=== PATIENT | male | born 1955 | race Caucasian/White ===

== ENCOUNTER 2021-05-26 06:14 | Inpatient (IN) ==
--- NOTE | 2021-05-19 14:03 | Anesthesiology Consultation ---
Date of Service May 19, 2021 Assessment & Plan (1) Encounter for pre-operative examination: Chart Review Chart Review: Acceptable Risk for Surgery (pending preop Covid testing results ) and Patient NOT seen in Pre Admission Testing Per nursing assessment 03/27/21, patient denies any recent travel. No known Covid positive contacts or Covid related symptoms. No known Covid infection in the past 90 days. Pt is vaccinated for Covid. Pt will need preop Covid testing 2-4 days prior to surgery= will await results Pt seen by cardio 03/25/21= presents for annual cardiology follow up. He has be ing seeing urology for bladder stones and has intermittent hematuria. He is to undergo a cystoscopic procedure to remove the stones. Patient is doing well with physically active lifestyle and no cardiopulmonary symptoms to suggest myocardial ischemia or systolic dysfunction 14 years status post CABG with NEWBY graft. Continue aspirin indefinitely. He has tried doses higher than 81 mg daily but has excessive bruising, reasonable to continue this dose long-term. Recommended that hestop aspirin for 5 days prior to cystoscopic procedure(no longer as he has old bypass grafts) or for 3 days if he has any hematuria. Follow up in one year History Surgery Operation Date: 04/21/21 10:30 Proposed Procedures p Transurethral Resection Prostate, - Jose Cintron DO s Cystolithopaxy - Jose Cintron DO Operation Date: 05/26/21 07:00 Proposed Procedures p Transurethral Resection of the Prostate and Cystolitholapaxy - Jose Cintron DO Height/Weight Height: 5 ft 9 in Weight: 84.368 kg Allergies Allergy/AdvReac Type Severity Reaction Status Date / Time No Known Allergies Allergy Verified 03/27/21 16:04 Medications Home Medications Medication Instructions Recorded Confirmed Last Taken atorvastatin 80 mg tablet 80 mg PO QAM 06/09/18 03/27/21 06/22/18 lisinopril 2.5 mg tablet 2.5 mg PO QAM 06/09/18 03/27/21 06/22/18 aspirin 81 mg tablet 81 mg PO QAM tab 03/25/21 03/27/21 Unknown nitroglycerin 0.4 mg sublingual 0.4 mg SUBLINGUAL DIRECTED PRN 03/25/21 03/27/21 Unknown tablet (Nitrostat) #25 tab finasteride 5 mg tablet 5 mg PO QAM 03/27/21 03/27/21 Unknown tamsulosin 0.4 mg capsule (Flomax) 0.4 mg PO QPM 03/27/21 03/27/21 Unknown Past Medical History Medical History BPH (benign prostatic hyperplasia) CAD (coronary artery disease) S/P inferolateral infarct with subsequent multivessel CABG including NEWBY 2006. "Has been intolerant to beta-blockers, BRIAN inhibitor remains a reasonable alternative" per cardio 02/2021 office note (follows with Dr. Sharpe) Dyslipidemia HTN (hypertension) Lesion of bladder Myocardial Infarction 2007 - [place] - HEART CATH AND THEN CABG X4 Osteoarthritis Past Family History Family History Other No family history of adverse response to anesthesia Past Surgical History Surgical History History of cardiac cath 2006 - [place] - WAS LIFEFLIGHTED TO [place], HAD HEART CATH AND THEN CABG X4 History of coronary artery bypass graft X 4 2006 History of surgery TURBT 06/20/18 [facility] Hx of transurethral resection of prostate Social History Smoking Status: Current every day smoker tobacco type: cigars Smoking cigarettes per day: 1 A DAY Do You Dip or Chew Tobacco: No Hx Alcohol Use: No Hx Substance Use: No substance use type: does not use Testing Laboratory Results 05/12/21= WBC: 7.5 H/H: 15.8/46.7 PLATELETS: 184 SODIUM: 139 POTASSIUM: 4.1 CHLORIDE: 110 CO2: 26 BUN: 13 CREATININE: 0.8 GLUCOSE: 102 UA: Hazy appearance, trace nitrite, 10-15 urine WBC, few bacteria, few mucus URINE CULTURE: <10,000 mixed bacterial kenneth Electrocardiogram Date: 04/04/21 Findings: + NSR @ (66bpm) Normal EKG per confirming provider Chest X-Ray Date: 04/02/21 Hyperventilatory changes in the lungs without evidence of focal abnormality Stress Test Date: 04/25/20 Type: exercise (ECHO) Negative stress EKG and ECHO for ischemia at 94% MPHR. 7 METS achieved. Pt had no exercise induced chest pain. Normal BP response to exercise No significant ectopy at rest and with exercise Baseline ECHO with mildly reduced LV systolic function (EF 40%), mild global HK most marked in distal septum, appropriate augmentation of all subramanian with exercise. Mild LVH
[~2021-05-26 06:14] MED LIST: LR 15ML/HR IV SCH; ceFAZolin 2000MG 2,000 MG/15 ML SYR IV SCH
[2021-05-26] MEDS ORDERED: NITROGLYCERIN SL 0.4 MG/TAB TAB SL PRN (07:05)
[2021-05-26] MEDS ORDERED: BELLADONNA/OPIUM SUPP 60 MG SUPP PR ONE (07:05)
[2021-05-26] MEDS ORDERED: ONDANSETRON INJ 2 MG/ML 2 ML VIAL IV PRN ×2 (07:05→07:20)
[2021-05-26] MEDS ORDERED: oxyCODONE/ACETAMINOPHEN 5mg/325mg TAB PO PRN (07:05)
[2021-05-26] MEDS ORDERED: MoRPHine SULFATE 2 MG/ML CARP IV PRN (07:05)
--- NOTE | 2021-05-26 07:05 | History & Physical Report ---
Date of Service May 26, 2021 Assessment & Plan (1) BPH loc w urin obs/LUTS: (2) Gross hematuria: (3) Bladder stones: Plan: Risks and benefits discussed at length for procedure. These include bleeding, infection, injury to surrounding tissues or organs, and risks associated with anesthesia. Patient states understanding and agrees to proceed. Will sign consent and proceed. Plan for cystoscopy with transurethral resection of prostate and lithalopaxy. Obs overnight with catheter for approx 10 days. History of Present Illness Primary Care Provider: Marc Dillard DO Patient here for procedure. No changes in medical issues. No major changes in urinary issues. Continued issues and concerns. No change in pain or discomfort. No severe fevers or chills. No chest pain or shortness of breath. Risks and benefits discussed at length for procedure. These include bleeding, infection, injury to surrounding tissues or organs, and risks associated with anesthesia. Patient and/or family states understanding and agrees to proceed. Consent and supporting information completed. Allergies Allergy/AdvReac Type Severity Reaction Status Date / Time No Known Allergies Allergy Verified 05/26/21 06:45 Home Medications Medication Instructions Recorded Confirmed Type atorvastatin 80 mg tablet 80 mg PO QAM 06/09/18 05/26/21 History lisinopril 2.5 mg tablet 2.5 mg PO QAM 06/09/18 05/26/21 History aspirin 81 mg tablet 81 mg PO QAM tab 03/25/21 05/26/21 History nitroglycerin 0.4 mg sublingual 0.4 mg SUBLINGUAL DIRECTED PRN 03/25/21 05/26/21 Rx tablet (Nitrostat) #25 tab finasteride 5 mg tablet 5 mg PO QAM 03/27/21 05/26/21 History tamsulosin 0.4 mg capsule (Flomax) 0.4 mg PO QPM 03/27/21 05/26/21 History Past Med/Surg History Medical History BPH (benign prostatic hyperplasia) CAD (coronary artery disease) S/P inferolateral infarct with subsequent multivessel CABG including NEWBY 2006. "Has been intolerant to beta-blockers, BRIAN inhibitor remains a reasonable alternative" per cardio 02/2021 office note (follows with Dr. Sharpe) Dyslipidemia HTN (hypertension) Lesion of bladder Myocardial Infarction 2007 - [place] - HEART CATH AND THEN CABG X4 Osteoarthritis Surgical History History of cardiac cath 2006 [place] - WAS LIFEFLIGHTED TO [place], HAD HEART CATH AND THEN CABG X4 History of coronary artery bypass graft X 4 2007 History of surgery TURBT 06/20/18 [facility] Hx of transurethral resection of prostate Family History Other No family history of adverse response to anesthesia Social History Smoking Status: Current every day smoker Cigarettes Per Day: 1 A DAY; Second Hand Exposure: No; Do You Dip or Chew Tobacco: No; Tobacco Cessation Education Requested by Patient: No Hx Alcohol Use: No Hx Substance Use: No Preferred Language: Armenian Communication Ability: Effective Visual Impairment: No Limitations Clicking Machine Operator Required: No Beliefs That Will Affect Care: None Current Living Situation: Spouse Feels Safe at Home: Yes Safety Concerns: Feels Safe At This Time Assistive Devices: Glasses Review of Systems All systems reviewed & are unremarkable except as noted in HPI & below Physical Exam Physical Exam: General: Alert/Arousable. No Acute illness. . HEENT: Inspection normal. Normal inspection of face. Normal inspection of neck. Psychologic: Normal affect/No change in mentation. Respiratory: No use of accessory muscles. No respiratory changes or exacerbation or changes with tachypnea or dyspnea. Cardiovascular: No tachycardia Skin: [place] and Dry. No new rashes or visible lesions. Abdomen: Normal inspection. No guarding. PG Care Time/CCT Total # of Minutes Spent Total Time Spent with Patient: Total time spent is greater than 50% in coordination of care (as documented) at patient's floor/unit and/or counseling patient: Coding Level of Care Code None Diagnoses BPH loc w urin obs/LUTS N40.1 Gross hematuria R31.0 Bladder stones N21.0
[2021-05-26] MEDS ORDERED: fentaNYL citrate 100 MCG/2 ML VIAL IV PRN (07:20)
[2021-05-26] MEDS ORDERED: ePHEDrine sulfate 50 MG/ML AMP IV PRN (07:20)
[2021-05-26] MEDS ORDERED: ATROPINE SULFATE 0.1 MG/ML 10ML SYR IV PRN (07:20)
[2021-05-26 07:31] LABS: Basophils # (auto) 0.04 K/uL (0-0.2); Basophils % (auto) 0.4 %; Eosinophils # (auto) 0.18 K/uL (0-0.5); Eosinophils % (auto) 1.9 %; Hematocrit (blood only) 45.7 % (42-52); Hemoglobin 15.4 g/dL (14.0-18.0); Immature Granulocytes # (auto) 0.01 K/uL (0.00-0.02); Immature Granulocytes % (auto) 0.1 %; Lymphocytes # (auto) 1.78 K/uL (1.2-3.4); Lymphocytes % (auto) 19.3 %; Mean Corpuscular Hemoglobin 31.6 pg (25-34); Mean Corpuscular Hgb Conc 33.7 g/dL (32-36); Mean Corpuscular Volume 93.6 fL (80-100); Mean Platelet Volume 10.9 fL (7.4-10.4); Monocytes # (auto) 0.61 K/uL (0.11-0.59); Monocytes % (auto) 6.6 %; Neutrophils # (auto) 6.62 K/uL (1.4-6.5); Neutrophils % (auto) 71.7 %; Platelet Count 186 K/uL (130-400); RDW Coefficient of Variation 13.4 % (11.5-14.5); RDW Standard Deviation 46.1 fL (36.4-46.3); Red Blood Count 4.88 M/uL (4.7-6.1); White Blood Count 9.24 K/uL (4.8-10.8)
[2021-05-26] MEDS ORDERED: PROPOFOL IV EMULSION 10 MG/ML 20 ML VIAL IV ONE (07:33)
[2021-05-26] MEDS ORDERED: ONDANSETRON INJ 2 MG/ML 2 ML VIAL ONE (07:33)
[2021-05-26] MEDS ORDERED: LIDOCAINE 2% 2 ML VIAL/AMP(20MG/ML) INFIL ONE (07:33)
[2021-05-26] MEDS ORDERED: fentaNYL citrate 100 MCG/2 ML VIAL ONE ×3 (07:34→08:53)
[2021-05-26] MEDS ORDERED: MIDAZOLAM HCL 1 MG/ML 2ML VIAL ONE (07:34)
[2021-05-26 08:00] LABS: Albumin Level 3.4 gm/dl (3.4-5.0); Creatinine Clr Calc Pharmacy 87.5 ml/min; Est GFR (African American) 106.6 ml/min
[2021-05-26 08:03] LABS: Albumin Globulin Ratio 0.9 (0.9-2); Bilirubin,Total 0.6 mg/dl (0.2-1); Globulin 3.6 gm/dl (2.5-4.0)
[2021-05-26] MEDS ORDERED: DEXAMETHASONE SOD INJ 4 MG/ML VIAL ONE ×2 (08:14→08:18)
[2021-05-26] MEDS ORDERED: KETOROLAC 30 MG/ML VIAL ONE (08:18)
[2021-05-26] MEDS ORDERED: PHENYLEPHRINE 100MCG/ML 5ML SYR ONE (08:27)
[2021-05-26] MEDS ORDERED: ePHEDrine sulfate 50 MG/ML SYR ONE (08:27)
[2021-05-26] MEDS ORDERED: ESMOLOL HCL INJ 10 MG/ML 10ML VIAL IV ONE (09:05)
--- NOTE | 2021-05-26 10:26 | Operative Report ---
PG Post Operative Report Pre & Post Diagnosis Operation Date: 05/26/21 08:00 Pre-Op Diagnosis: Benign Prostate Hyperplasia, Bladder Stones Post-Op Diagnosis: Benign Prostate Hyperplasia, Bladder Stones I identified the patient and participated in the time-out.: Yes Procedure Operation Date: 05/26/21 08:00 Actual Procedures p Transurethral Resection of the Prostate, Cystolitholapaxy(Not Applicable) - Jose Cintron DO Surgeon Jose Cintron, II, DO Epitaxial Reactor Operator None Estimated Blood Loss 10 Findings Consistent with Post-Op Diagnosis Extremely Large Prostate with obstruction. Large bladder stones. Four stones greater than 1 cm. Largest was approx 3.2 cm in size. Specimens Prostate adenoma. Bladder stone Drains 22Fr [address] way Catheter Anesthesia Type General Complications none Disposition Disposition: Recovery Room Indications Patient with obstruction due to prostate enlargement. Risks and benefits discussed at length. Description of Procedure Patient was consented and brought back to the operating room. Patient was placed under anesthesia in the supine position and moved to the dorsal lithotomy position. Patient was prepped and draped in the regular sterile fashion. A time out was completed. A 30degree Cystoscope was placed into the bladder and the entire bladder was examined. The UO's were identified as well as the bladder neck, trigone, dome, and the other important landmarks. The prostatic urethra and large lobes/adenoma was assessed and the veru and bladder neck identified and area/size was assessed. The large bladder stones were assess. The 1000 micron laser fiber was selected and the stones were destroyed and evacuated. A considerable amount of inflammation with a stone attached to the right lateral lobe was discovered. The stones were completely cleared and removed. The resection scope was placed and the fine bipolar loop was selected. Starting at the 5 and 7 o'clock positions, a channel was created from bladder neck to the veru. The massive lateral lobes were then resected from the 1 and 11 o'clock position to the channel. Both lateral lobes had a large amount of tissue with a good deal of adenoma projecting into the bladder. The anterior prostate was resected to finalize the channel. The Specimen was removed and sent for analysis. The resection bed and any bleeding areas were fulgurated/cauterized and the entire area inspected. All bleeding was controlled. The bladder was inspected a final time. The bladder was emptied and irrigated. All specimen and debris was removed. The scope was removed with the bladder partially full. A catheter was placed and balloon elevated. This was easily irrigated. The patient was cleaned, aroused from anesthesia, and transferred to the pacu in stable condition having tolerated the procedure well with no complications. I was present and participated in all aspects of the procedure. The patient will be monitored in the PACU until transferred. Plan to maintain catheter for 10-14 days. Plans for observation overnight with CBI. I attest to the content of the Intraoperative Record and any orders documented therein. Any exceptions are noted below.
--- NOTE | 2021-05-26 11:02 | Anesthesiology Progress Note ---
Date of Service May 26, 2021 Anesthesia Post Procedure Vital Signs Vital Signs: Temp Pulse Pulse Resp BP Pulse Ox 05/26/21 10:55 63 15 105/67 96 05/26/21 10:45 64 15 113/70 98 05/26/21 10:35 70 14 94/67 L 94 05/26/21 10:29 36.1 C L 71 17 105/72 92 05/26/21 06:51 36.8 C 70 20 126/85 95 Transfer of Care Handoff Completed per policy Notes Mental Status: alert / awake / arousable Patient Amnestic to Procedure: Yes Nausea / Vomiting: adequately controlled Pain: adequately controlled Airway Patency, RR, SpO2: stable & adequate BP & HR: stable & adequate Hydration State: stable & adequate Anesthetic Complications: no major complications apparent
[2021-05-26] MEDS: DOCUSATE SODIUM 100 MG CAP PO SCH ×2 (13:04→21:06)
[2021-05-26] MEDS: ATORVASTATIN 40 MG TAB PO SCH (13:04)
[2021-05-26] MEDS: SODIUM CHLORIDE 0.9% 1000ML 1,000 ML IV SCH (13:06)
[2021-05-26] MEDS ORDERED: ceFAZolin 2000MG 2,000 MG/15 ML SYR IV SCH (16:00)
[2021-05-26] MEDS ORDERED: PIPERACILL/TAZOBAC CONSULT ACTIVE PRN (17:52)
[2021-05-26] MEDS: ACETAMINOPHEN 500 MG TAB PO PRN (18:20)
[2021-05-26] MEDS ORDERED: PIPERACILLIN/TAZOBACTAM 3.375 GM in DEXTROSE 5% 100 ML IV ONE (18:30)
[2021-05-26 18:43] LABS: Eosinophils # (auto) 0.02 K/uL (0-0.5); Eosinophils % (auto) 0.2 %; Hematocrit (blood only) 39.3 % (42-52); Hemoglobin 13.1 g/dL (14.0-18.0); Immature Granulocytes # (auto) 0.02 K/uL (0.00-0.02); Immature Granulocytes % (auto) 0.2 %; Lymphocytes # (auto) 0.25 K/uL (1.2-3.4); Lymphocytes % (auto) 2.1 %; Mean Corpuscular Hemoglobin 31.5 pg (25-34); Mean Corpuscular Volume 94.5 fL (80-100); Mean Platelet Volume 11.1 fL (7.4-10.4); Monocytes # (auto) 0.19 K/uL (0.11-0.59); Monocytes % (auto) 1.6 %; Neutrophils # (auto) 11.54 K/uL (1.4-6.5); Neutrophils % (auto) 95.9 %; Platelet Count 147 K/uL (130-400); RDW Coefficient of Variation 13.6 % (11.5-14.5); Red Blood Count 4.16 M/uL (4.7-6.1); White Blood Count 12.02 K/uL (4.8-10.8)
[2021-05-26 18:45] LABS: Mean Corpuscular Hgb Conc 33.3 g/dL (32-36)
--- NOTE | 2021-05-26 19:07 | XRay Report ---
SINGLE VIEW CHEST CLINICAL HISTORY: Fever FINDINGS: An AP, portable, upright chest radiograph is compared to study dated 06/13/2018. The patien t is status post midline sternotomy. The heart is enlarged noting atherosclerotic calcification of th e thoracic aorta. The pulmonary vasculature is noncongested. The hiatal hernia is noted. There is bib asilar scarring/atelectasis. No airspace consolidation or large pleural effusion is identified. No pn eumothorax is seen. The skeletal structures are osteopenic. The bony thorax is grossly intact. Degene rative change and scoliosis is noted in the thoracic spine. Arthritic change is seen in the shoulders . IMPRESSION: Mild cardiomegaly with no acute cardiopulmonary abnormality. ACT 112: Negative or not required by law. Electronically signed by: Milan Padron M.D. 05/26/2021 7:05 PM
[2021-05-26 19:09] LABS: Albumin Level 2.9 gm/dl (3.4-5.0); BUN Creatinine Ratio 12.5 (10-20); Calcium 7.8 mg/dl (8.5-10.1); Creatinine Clr Calc Pharmacy 59.1 ml/min; Est GFR (African American) 72.1 ml/min; Est GFR (Non-African American) 62.2 ml/min
[2021-05-26 19:11] LABS: Albumin Globulin Ratio 0.8 (0.9-2); Bilirubin,Total 0.4 mg/dl (0.2-1); Globulin 3.8 gm/dl (2.5-4.0); Total Protein 6.7 gm/dl (6.4-8.2)
[2021-05-26] MEDS: TAMSULOSIN HCL 0.4 MG CAP PO SCH (21:07)
[2021-05-27] MEDS: SODIUM CHLORIDE 0.9% 1000ML 1,000 ML IV SCH ×2 (01:07→08:53)
[2021-05-27] MEDS: PIPERACILLIN/TAZOBACTAM 3.375 GM in DEXTROSE 5% 100 ML IV SCH ×3 (01:07→15:32)
[2021-05-27] MEDS: oxyCODONE HCL IR 5 MG TAB (IMMEDIATE RELEASE) PO PRN ×3 (05:05→18:32)
[2021-05-27] MEDS: ACETAMINOPHEN 500 MG TAB PO PRN ×2 (07:31→15:32)
--- NOTE | 2021-05-27 07:57 | Hospitalist Consultation ---
Date of Consultation May 27, 2021 Assessment & Plan (1) Sepsis: fever, tachycardia, leukocytosis, elevated lactic acid, likely from urinary source however others not yet ruled out POD#1 s/p TURP and cystolitholapaxy with Dr Cintron on 05/26 developed fever to Tmax 38.7C on 05/26 at 17:30 Blood cultures obtained Switched from ancef to Zosyn for abx Urine culture obtained after however does appear to be source of infection Of note, repeat CXR (last evening without evidence for infection), now with increasing bibasilar airspace consolidation typical for an infectious/inflammatory pneumonitis. F/u recommended to resolution --> Duonebs prn, incentive spirometer, flutter valve. Not producing sputum but does have hx seasonal allergies and on Flonase at home (resumed) and to be taking Zyrtec (which has been ordered for nasal congestion) --> He did have Covid 19 approx 1 year ago, vaccinated x 2 six months ago. Antibody testing accidental ordered instead of repeat COVID and likely positive due to immune status, however repeating PCR and remaining in isolation until resulted. Flu negative. Lactic added --> 2.4. Provided additional 500cc bolus . repeat pending following Procal 0.43 Continues on Zosyn (would cover for abd/pulm/urinary) -- monitor blood cultures, urine cultures Continue LR @80cc/hr Tylenol prn fever -- no further fever since this morning after administration, currently 36.9C. Continue to monitor, supportive care (2) Fever: Fever to Tmax 38.7C at 17:30 on 05/26 Blood cultures drawn -- follow Urine cx unable to be drawn due to patient on CBI, pending Already started on Zosyn IV -- continue for now WBC trending down 1gm IV Tylenol administered this morning CXR last night without evidence of pneumonia. Continue incentive spirometer EKG, Repeat CXR as above. Trop <0.015 (3) Hypoxia: Continue incentive spirometer Supplemental O2 as needed Currently 91% on 2L Repeat CXR pending Titrate as tolerated Also possible JO based on conversation. Overnight study to be performed (4) S/P CABG (coronary artery bypass graft): S/P inferolateral infarct with subsequent multivessel CABG including NEWBY 2006. Has been intolerant to beta-blockers, BRIAN inhibitor remains a reasonable alternative" per cardio 02/2021 office note (follows with Dr. Sharpe) ASA held pre-op -- to be resumed post-operatively if bleeding controlled Continue lisinopril tomorrow -- Cr 1.34 from baseline closer to 1 IVF as above (5) BPH loc w urin obs/LUTS: s/p TURP as above. management per primary service Continue flomax (6) Lesion of bladder: as above (7) CAD (coronary artery disease): follows with Dr Sharpe locally. ASA held, Intolerate to BB. On max statin. Lisinopril on hold for EKATERINA with Cr 1.34 from baseline <1 EKG pending , negative (8) HTN (hypertension): BP low normal 107/60 Lisinopril on hold currently, possible resume in AM pending labs/creatinine (9) Dyslipidemia: continue Lipitor 80mg continued inpatient stay for sepsis Supervising Physician Co-Signing Physician Notes Patient seen and examined at bedside. During face to face encounter with the patient, I performed a history and physical examination. I discussed plan of care with GALE Prado and patient. I reviewed above note except for what is documented below. Patient will be monitored for sepsis, likely Urological source. Will place on antibiotics. Doubt viral infection, given elevated procal. History of Present Illness Reason for Consultation: CAD, Hx NM, Fever Requesting Physician: Dr Cintron Attending Physician: Jose Cintron, II, DO History of Present Illness 65yo male with PMHx significant for CAD (inferolateral infarct with subsequent multivessel CABG including NEWBY 2006), HTN, HLD, BPH presented for cystoscopy with transurethral resection of prostate and lithalopaxy with Dr. Cintron with initial plans for observation overnight with catheter to remain in place for 10- 14 days. Patient developed fever last evening and blood cultures obtained by primary serv ice and he was started on IV Zosyn. Labs from this morning pending -- WBC improving but Cr elevated. Patient states he did feel a little clammy last night and that after he had dinner with "white chicken" he was nauseous and thought he might throw up, but hadn't. He notes he does have a history of allergies and uses flonase at home, and they act up when he is doing things outdoors. He has been prescibed zyrtec in the past but has not taken this. No cough or shortness of breath. Did have some tightness but since resolved. Has numbness to R hand chronically and no change from baseline -- he is planning for surgical correct of carpel tunnel. Oxygen was 94% this am and RN attempted to wean off oxygen to 88-89% when eating and then falling back asleep. He does admit to daytime sleepiness and not getting restful sleep at times. Does have family with JO and will check overnight pulse ox. RN to get patient out of bed today to help respiratory status and encourage deep breathing and help get his bowels moving. He did not move them yesterday or today and is typically a "once a day in the AM" kind of jada. No chest pain, shortness of breath, abdominal pain (but does feel a little full) , no further nausea, no vomiting. No further fevers since administration of tylenol this morning. Plans for continued inpatient monitoring and possible d/c in next 1-2 days pending hospital course. COVID antibodies positive - did have covid 1 year ago, vaccine x 2 6 months ago. No recent contact w/ positive patient. Will be placed in isolation until repeat PCR able to be completed. No loss of ta jim or smell. Allergies Allergy/AdvReac Type Severity Reaction Status Date / Time No Known Allergies Allergy Verified 05/26/21 06:45 Home Medications Medication Instructions Recorded Confirmed Type atorvastatin 80 mg tablet 80 mg PO QAM 06/09/18 05/26/21 History lisinopril 2.5 mg tablet (Zestril) 2.5 mg PO QAM 06/09/18 05/26/21 History aspirin 81 mg tablet 81 mg PO QAM tab 03/25/21 05/26/21 History nitroglycerin 0.4 mg sublingual 0.4 mg SUBLINGUAL DIRECTED PRN 03/25/21 05/26/21 Rx tablet (Nitrostat) #25 tab finasteride 5 mg tablet 5 mg PO QAM 03/27/21 05/26/21 History tamsulosin 0.4 mg capsule (Flomax) 0.4 mg PO QPM 03/27/21 05/26/21 History amoxicillin 875 mg-potassium 1 tab PO BID 9 Days #18 tab 05/28/21 Rx clavulanate 125 mg tablet (Augmentin) docusate sodium 100 mg capsule 100 mg PO BID #30 cap 05/28/21 Rx (Colace) oxycodone-acetaminophen 5 mg-325 1 tab PO Q8H PRN #7 tab 05/28/21 Rx mg tablet (Percocet) Patient History Medical History BPH (benign prostatic hyperplasia) CAD (coronary artery disease) S/P inferolateral infarct with subsequent multivessel CABG including NEWBY 2006. "Has been intolerant to beta-blockers, BRIAN inhibitor remains a reasonable alternative" per cardio 02/2021 office note (follows with Dr. Sharpe) Dyslipidemia HTN (hypertension) Lesion of bladder Myocardial Infarction 2007 - [place] - HEART CATH AND THEN CABG X4 Osteoarthritis Surgical History History of cardiac cath 2006 - [place] - WAS LIFE[facility]IGHTED [place], HAD HEART CATH AND THEN CABG X4 History of coronary artery bypass graft X 4 2006 History of surgery TURBT 06/20/18 [facility] Hx of transurethral resection of prostate Family History Other No family history of adverse response to anesthesia Social History Smoking Status: Current every day smoker Cigarettes Per Day: 1 A DAY; Second Hand Exposure: No; Hx Alcohol Use: No Hx Substance Use: No Preferred Language: Vietnamese Communication Ability: Effective Visual Impairment: No Limitations Mothers Helper Required: No Beliefs That Will Affect Care: None marital status: Current Living Situation: Spouse Feels Safe at Home: Yes Assistive Devices: Glasses Review of Systems Review of Systems: All systems reviewed & are unremarkable except as noted in HPI & below Physical Exam Physical Exam: WD, WN male sitting in ASU up in bed, no acute distress, sleeping upon arrival ENT: dry mm, trachea midline without deviation, eyes anicteric, post-nasal drip, bogginess of nasal turbinates, no lymphadenopathy appreciated Resp: clear to auscultation with exception diminished in the bases with associated bibasilar crackles, no wheezing, (previously on room air but on 2L while sleeping as dropped to upper 80s on room air) CV: regular rhythm, tachycardic with rate 102bpm, no r/g/m, no calf edema GI: +BS throughout, slightly hypoactive, soft, non-tender, no guarding or rigidity : llanes in place draining cloudy pink tinged urine MSK/Neuro: moves all extremities, no focal deficits, no slurred speech, answ ering questions appropriately Psych: AOx3, euthymic Results & Data Results & Data ([facility]) Vital Signs (Past 12 Hours) Vital Signs Temp Pulse Resp BP Pulse Ox 05/27/21 05:50 38.0 C H 90 18 107/60 91 Laboratory Results 05/27/21 05/27/21 05/27/21 Range/Units 13:50 13:50 12:20 WBC (4.8-10.8) K/uL RBC (4.7-6.1) M/uL Hgb (14.0-18.0) g/dL Hct (42-52) % MCV (80-100) fL MCH (25-34) pg MCHC (32-36) g/dL RDW Std Deviation (36.4-46.3) fL RDW Coeff of Sheila (11.5-14.5) % Plt Count (130-400) K/uL MPV (7.4-10.4) fL Immature Gran % (Auto) % Neut % (Auto) % Lymph % (Auto) % [place] % (Auto) % Eos % (Auto) % Baso % (Auto) % Neut # (Auto) (1.4-6.5) K/uL Lymph # (Auto) (1.2-3.4) K/uL [place] # (Auto) (0.11-0.59) K/uL Eos # (Auto) (0-0.5) K/uL Baso # (Auto) (0-0.2) K/uL Immature Gran # (Auto) (0.00-0.02) K/uL Sodium (136-145) mmol/L Potassium (3.5-5.1) mmol/L Chloride (98-107) mmol/L Carbon Dioxide (21-32) mmol/L Anion Gap (3-11) BUN (7-18) mg/dl Creatinine (0.6-1.4) mg/dl Est Cr Clr Drug Dosing ml/min Est GFR ( Amer) ml/min Est GFR (Non-Af Amer) ml/min BUN/Creatinine Ratio (10-20) Glucose (70-99) mg/dl Lactate 2.4 H* (0.4-2.0) mmol/L Calcium (8.5-10.1) mg/dl Magnesium (1.8-2.4) mg/dl Total Bilirubin (0.2-1) mg/dl AST (15-37) U/L ALT (12-78) U/L Alkaline Phosphatase (45-117) U/L Troponin I (0-0.045) ng/ml C-Reactive Protein (0-0.29) mg/dl Total Protein (6.4-8.2) gm/dl Albumin (3.4-5.0) gm/dl Globulin (2.5-4.0) gm/dl Albumin/Globulin Ratio (0.9-2) Procalcitonin 0.43 (0-0.5) ng/ml Urine Color Urine Appearance (Clear) Urine pH (4.5-7.5) Ur Specific [place] (1.000-1.030) Urine Protein (Negative) Urine Glucose (UA) (Negative) Urine Ketones (Negative) Urine Blood (Negative) Urine Nitrite (Negative) Urine Bilirubin (Negative) Urine Urobilinogen (Negative) Ur Leukocyte Esterase (Negative) Urine WBC (Auto) (0-5) /hpf Urine RBC (Auto) (0-4) /hpf U Hyaline Cast (Auto) (0-5) /lpf U Epithel Cells (Auto) (0-5) /lpf Urine Bacteria (Auto) (Negative) Urine Mucus (None Prsent) Urine Yeast Influ A Molecular Assay (Negative) Influ B Molecular Assay (Negative) SARS-CoV-2 RNA (CORIN) Pending SARS-CoV-2 IgG & IgM Ab (Negative) 05/27/21 05/27/21 05/27/21 Range/Units 09:10 09:10 08:36 WBC (4.8-10.8) K/uL RBC (4.7-6.1) M/uL Hgb (14.0-18.0) g/dL Hct (42-52) % MCV (80-100) fL MCH (25-34) pg MCHC (32-36) g/dL RDW Std Deviation (36.4-46.3) fL RDW Coeff of Sheila (11.5-14.5) % Plt Count (130-400) K/uL MPV (7.4-10.4) fL Immature Gran % (Auto) % Neut % (Auto) % Lymph % (Auto) % [place] % (Auto) % Eos % (Auto) % Baso % (Auto) % Neut # (Auto) (1.4-6.5) K/uL Lymph # (Auto) (1.2-3.4) K/uL [place] # (Auto) (0.11-0.59) K/uL Eos # (Auto) (0-0.5) K/uL Baso # (Auto) (0-0.2) K/uL Immature Gran # (Auto) (0.00-0.02) K/uL Sodium (136-145) mmol/L Potassium (3.5-5.1) mmol/L Chloride (98-107) mmol/L Carbon Dioxide (21-32) mmol/L Anion Gap (3-11) BUN (7-18) mg/dl Creatinine (0.6-1.4) mg/dl Est Cr Clr Drug Dosing ml/min Est GFR ( Amer) ml/min Est GFR (Non-Af Amer) ml/min BUN/Creatinine Ratio (10-20) Glucose (70-99) mg/dl Lactate (0.4-2.0) mmol/L Calcium (8.5-10.1) mg/dl Magnesium (1.8-2.4) mg/dl Total Bilirubin (0.2-1) mg/dl AST (15-37) U/L ALT (12-78) U/L Alkaline Phosphatase (45-117) U/L Troponin I (0-0.045) ng/ml C-Reactive Protein (0-0.29) mg/dl Total Protein (6.4-8.2) gm/dl Albumin (3.4-5.0) gm/dl Globulin (2.5-4.0) gm/dl Albumin/Globulin Ratio (0.9-2) Procalcitonin (0-0.5) ng/ml Urine Color Red Urine Appearance Cloudy A (Clear) Urine pH 5.5 (4.5-7.5) Ur Specific [place] 1.008 (1.000-1.030) Urine Protein 1+ H (Negative) Urine Glucose (UA) Negative (Negative) Urine Ketones Negative (Negative) Urine Blood 3+ H (Negative) Urine Nitrite Negative (Negative) Urine Bilirubin Negative (Negative) Urine Urobilinogen Negative (Negative) Ur Leukocyte Esterase 2+ H (Negative) Urine WBC (Auto) 10-30 H (0-5) /hpf Urine RBC (Auto) >30 H (0-4) /hpf U Hyaline Cast (Auto) 1-5 (0-5) /lpf U Epithel Cells (Auto) 0-5 (0-5) /lpf Urine Bacteria (Auto) Negative (Negative) Urine Mucus Present A (None Prsent) Urine Yeast Not Reportable Influ A Molecular Assay Negative (Negative) Influ B Molecular Assay Negative (Negative) SARS-CoV-2 RNA (CORIN) SARS-CoV-2 IgG & IgM Ab Positive A (Negative) 05/27/21 05/27/21 05/27/21 Range/Units 08:07 08:07 08:07 WBC 11.26 H (4.8-10.8) K/uL RBC 3.83 L (4.7-6.1) M/uL Hgb 12.1 L (14.0-18.0) g/dL Hct 36.3 L (42-52) % MCV 94.8 (80-100) fL MCH 31.6 (25-34) pg MCHC 33.3 (32-36) g/dL RDW Std Deviation 48.5 H (36.4-46.3) fL RDW Coeff of Sheila 14.0 (11.5-14.5) % Plt Count 118 L (130-400) K/uL MPV 11.3 H (7.4-10.4) fL Immature Gran % (Auto) 0.3 % Neut % (Auto) 93.7 % Lymph % (Auto) 2.3 % [place] % (Auto) 2.8 % Eos % (Auto) 0.9 % Baso % (Auto) 0.0 % Neut # (Auto) 10.56 H (1.4-6.5) K/uL Lymph # (Auto) 0.26 L (1.2-3.4) K/uL [place] # (Auto) 0.31 (0.11-0.59) K/uL Eos # (Auto) 0.10 (0-0.5) K/uL Baso # (Auto) 0.00 (0-0.2) K/uL Immature Gran # (Auto) 0.03 H (0.00-0.02) K/uL Sodium 137 (136-145) mmol/L Potassium 3.9 (3.5-5.1) mmol/L Chloride 107 (98-107) mmol/L Carbon Dioxide 19 L (21-32) mmol/L Anion Gap 11.0 (3-11) BUN 18 (7-18) mg/dl Creatinine 1.34 (0.6-1.4) mg/dl Est Cr Clr Drug Dosing 52.9 ml/min Est GFR ( Amer) 63.1 ml/min Est GFR (Non-Af Amer) 54.4 ml/min BUN/Creatinine Ratio 13.1 (10-20) Glucose 158 H (70-99) mg/dl Lactate (0.4-2.0) mmol/L Calcium 7.5 L (8.5-10.1) mg/dl Magnesium 1.7 L (1.8-2.4) mg/dl Total Bilirubin (0.2-1) mg/dl AST (15-37) U/L ALT (12-78) U/L Alkaline Phosphatase (45-117) U/L Troponin I < 0.015 (0-0.045) ng/ml C-Reactive Protein 11.00 H (0-0.29) mg/dl Total Protein (6.4-8.2) gm/dl Albumin (3.4-5.0) gm/dl Globulin (2.5-4.0) gm/dl Albumin/Globulin Ratio (0.9-2) Procalcitonin (0-0.5) ng/ml Urine Color Urine Appearance (Clear) Urine pH (4.5-7.5) Ur Specific [place] (1.000-1.030) Urine Protein (Negative) Urine Glucose (UA) (Negative) Urine Ketones (Negative) Urine Blood (Negative) Urine Nitrite (Negative) Urine Bilirubin (Negative) Urine Urobilinogen (Negative) Ur Leukocyte Esterase (Negative) Urine WBC (Auto) (0-5) /hpf Urine RBC (Auto) (0-4) /hpf U Hyaline Cast (Auto) (0-5) /lpf U Epithel Cells (Auto) (0-5) /lpf Urine Bacteria (Auto) (Negative) Urine Mucus (None Prsent) Urine Yeast Influ A Molecular Assay (Negative) Influ B Molecular Assay (Negative) SARS-CoV-2 RNA (CORIN) SARS-CoV-2 IgG & IgM Ab (Negative) 05/26/21 05/26/21 Range/Units 18:22 18:22 WBC 12.02 H (4.8-10.8) K/uL RBC 4.16 L (4.7-6.1) M/uL Hgb 13.1 L (14.0-18.0) g/dL Hct 39.3 L (42-52) % MCV 94.5 (80-100) fL MCH 31.5 (25-34) pg MCHC 33.3 (32-36) g/dL RDW Std Deviation 47.0 H (36.4-46.3) fL RDW Coeff of Sheila 13.6 (11.5-14.5) % Plt Count 147 (130-400) K/uL MPV 11.1 H (7.4-10.4) fL Immature Gran % (Auto) 0.2 % Neut % (Auto) 95.9 % Lymph % (Auto) 2.1 % [place] % (Auto) 1.6 % Eos % (Auto) 0.2 % Baso % (Auto) 0.0 % Neut # (Auto) 11.54 H (1.4-6.5) K/uL Lymph # (Auto) 0.25 L (1.2-3.4) K/uL [place] # (Auto) 0.19 (0.11-0.59) K/uL Eos # (Auto) 0.02 (0-0.5) K/uL Baso # (Auto) 0.00 (0-0.2) K/uL Immature Gran # (Auto) 0.02 (0.00-0.02) K/uL Sodium 140 (136-145) mmol/L Potassium 4.0 (3.5-5.1) mmol/L Chloride 110 H (98-107) mmol/L Carbon Dioxide 21 (21-32) mmol/L Anion Gap 9.0 (3-11) BUN 15 (7-18) mg/dl Creatinine 1.20 D (0.6-1.4) mg/dl Est Cr Clr Drug Dosing 59.1 ml/min Est GFR ( Amer) 72.1 ml/min Est GFR (Non-Af Amer) 62.2 ml/min BUN/Creatinine Ratio 12.5 (10-20) Glucose 153 H (70-99) mg/dl Lactate (0.4-2.0) mmol/L Calcium 7.8 L (8.5-10.1) mg/dl Magnesium (1.8-2.4) mg/dl Total Bilirubin 0.4 (0.2-1) mg/dl AST 20 (15-37) U/L ALT 23 (12-78) U/L Alkaline Phosphatase 93 (45-117) U/L Troponin I (0-0.045) ng/ml C-Reactive Protein (0-0.29) mg/dl Total Protein 6.7 (6.4-8.2) gm/dl Albumin 2.9 L (3.4-5.0) gm/dl Globulin 3.8 (2.5-4.0) gm/dl Albumin/Globulin Ratio 0.8 L (0.9-2) Procalcitonin (0-0.5) ng/ml Urine Color Urine Appearance (Clear) Urine pH (4.5-7.5) Ur Specific [place] (1.000-1.030) Urine Protein (Negative) Urine Glucose (UA) (Negative) Urine Ketones (Negative) Urine Blood (Negative) Urine Nitrite (Negative) Urine Bilirubin (Negative) Urine Urobilinogen (Negative) Ur Leukocyte Esterase (Negative) Urine WBC (Auto) (0-5) /hpf Urine RBC (Auto) (0-4) /hpf U Hyaline Cast (Auto) (0-5) /lpf U Epithel Cells (Auto) (0-5) /lpf Urine Bacteria (Auto) (Negative) Urine Mucus (None Prsent) Urine Yeast Influ A Molecular Assay (Negative) Influ B Molecular Assay (Negative) SARS-CoV-2 RNA (CORIN) SARS-CoV-2 IgG & IgM Ab (Negative) Diagnostic Findings Chest X-Ray 05/26/21 18:00 SINGLE VIEW CHEST CLINICAL HISTORY: Fever FINDINGS: An AP, portable, upright chest radiograph is compared to study dated 06/13/2018. The patient is status post midline sternotomy. The heart is enlarged noting atherosclerotic calcification of the thoracic aorta. The pulmonary vasculature is noncongested. The hiatal hernia is noted. There is bibasilar scarring/atelectasis. No airspace consolidation or large pleural effusion is identified. No pneumothorax is seen. The skeletal structures are osteopenic. The bony thorax is grossly intact. Degenerative change and scoliosis is noted in the thoracic spine. Arthritic change is seen in the shoulders. IMPRESSION: Mild cardiomegaly with no acute cardiopulmonary abnormality. ACT 112: Negative or not required by law. Electronically signed by: Milan Padron M.D. 05/26/2021 7:05 PM PG Care Time/CCT Total # of Minutes Spent Total Time Spent with Patient: Total time spent is greater than 50% in coordination of care (as documented) at patient's floor/unit and/or counseling patient: Coding Level of Care Code 50673 Office/OBS Consult Lvl 3 Diagnoses S/P CABG (coronary artery bypass graft) Z95.1 BPH loc w urin obs/LUTS N40.1 Lesion of bladder N32.9 CAD (coronary artery disease) I25.10 HTN (hypertension) I10 Dyslipidemia E78.5 Fever R50.9 Hypoxia R09.02 Sepsis A41.9
--- NOTE | 2021-05-27 08:25 | Urology Progress Note ---
Date of Service May 27, 2021 Assessment & Plan (1) BPH loc w urin obs/LUTS: (2) Bladder stones: (3) Fever: Plan: 65yo M admitted s/p TURP who developed fever postoperatively - POD #1 s/p Transurethral Resection of the Prostate, Cystolitholapaxy with Dr. Cintron - Patient unfortunately developed fever postoperatively - Fever to Tmax 38.7C at 17:30 on 05/26 - Hospital medicine consulted- Appreciate recommendations - CXR yesterday with no acute cardiopulmonary abnormality, repeat pending - EKG ordered per hospital medicine - Continues on supplemental O2 as needed - Febrile this AM to 38.0 - Tylenol administered - Labs reviewed - Wbc downtrending, Hgb 12.1, Creatinine stable - Urine and blood cultures pending - On IV Zosyn - 3 way Kerr catheter intact, patent and draining clear urine with CBI on slow - CBI clamped @ 1045, nursing aware - will reassess later today - Maintain Kerr catheter - Continue supportive care and close monitoring - Encourage ambulation and use of incentive spirometer - Will continue to follow Admission and Anticipated Discharge Date Admission Date: May 26, 2021 Subjective Pt examined at bedside this AM. Awake, resting in bed on arrival. No acute distress. He denies fever or chills at presents. Denies abdominal, flank, and back pain. Kerr catheter intact, draining clear yellow with a few small clots noted in tubing with CBI running on slow He reports feeling congested. Denies CP/SOB. Reports R hand pain, states he has carpal tunnel. No nausea or vomiting this morning. Tolerating PO diet. Febrile overnight - Tmax 38.7 IV antibiotics changed to Zosyn Blood cultures obtained and pending Urine culture pending On 2L O2 NC Chest xray noted mild cardiomegaly with no acute cardiopulmonary abnormality. Hospital team consulted Review of Systems Constitutional: as per Subjective / HPI Gastrointestinal: as per Subjective / HPI Genitourinary: + as per Subjective / HPI Physical Exam Constitutional: well developed and well nourished; no acute distress and not ill appearing Respiratory: normal respiratory effort and able to speak in complete sentences; no labored breathing and no audible wheezes Gastrointestinal (Abdomen): Inspection/Auscultation: abdomen normal to inspection; abdomen not distended Percussion/Palpation: abdomen soft; abdomen nontender and no guarding Musculoskeletal: Head/Neck/Chest: normocephalic Skin: No visible rashes or lesions to exposed skin areas Neurologic: moves all extremities and awake Psychiatric: Orientation: alert, oriented x 3 and cooperative Genitourinary: Kerr catheter intact Results & Data ([facility]) Vital Signs (Past 12 Hours) Vital Signs Temp Pulse Resp BP Pulse Ox 05/27/21 05:50 38.0 C H 90 18 107/60 91 PG Care Time/CCT Total # of Minutes Spent Total Time Spent with Patient: Total time spent is greater than 50% in coordination of care (as documented) at patient's floor/unit and/or counseling patient: Coding Level of Care Code 57008 Subseq Hosp Care Lvl 2 Diagnoses BPH loc w urin obs/LUTS N40.1 Bladder stones N21.0 Fever R50.9
[2021-05-27 08:53] LABS: Eosinophils % (auto) 0.9 %; Hematocrit (blood only) 36.3 % (42-52); Hemoglobin 12.1 g/dL (14.0-18.0); Immature Granulocytes # (auto) 0.03 K/uL (0.00-0.02); Immature Granulocytes % (auto) 0.3 %; Lymphocytes # (auto) 0.26 K/uL (1.2-3.4); Lymphocytes % (auto) 2.3 %; Mean Corpuscular Hemoglobin 31.6 pg (25-34); Mean Corpuscular Hgb Conc 33.3 g/dL (32-36); Mean Corpuscular Volume 94.8 fL (80-100); Mean Platelet Volume 11.3 fL (7.4-10.4); Monocytes # (auto) 0.31 K/uL (0.11-0.59); Monocytes % (auto) 2.8 %; Neutrophils # (auto) 10.56 K/uL (1.4-6.5); Neutrophils % (auto) 93.7 %; Platelet Count 118 K/uL (130-400); RDW Standard Deviation 48.5 fL (36.4-46.3); Red Blood Count 3.83 M/uL (4.7-6.1); White Blood Count 11.26 K/uL (4.8-10.8)
[2021-05-27] MEDS: ATORVASTATIN 40 MG TAB PO SCH (08:53)
[2021-05-27] MEDS: DOCUSATE SODIUM 100 MG CAP PO SCH ×2 (08:53→20:47)
[2021-05-27 09:10] LABS: BUN Creatinine Ratio 13.1 (10-20); Blood Urea Nitrogen 18 mg/dl (7-18); Calcium 7.5 mg/dl (8.5-10.1); Carbon Dioxide 19 mmol/L (21-32); Chloride 107 mmol/L (98-107); Creatinine Clr Calc Pharmacy 52.9 ml/min; Est GFR (African American) 63.1 ml/min; Est GFR (Non-African American) 54.4 ml/min; Glucose 158 mg/dl (70-99); Potassium 3.9 mmol/L (3.5-5.1); Sodium 137 mmol/L (136-145)
[2021-05-27 09:14] LABS: Troponin I < 0.015 ng/ml (0-0.045)
--- NOTE | 2021-05-27 09:21 | XRay Report ---
SINGLE VIEW CHEST CLINICAL HISTORY: Fever. Hypoxia. FINDINGS: An AP, portable, upright chest radiograph is compared to study dated 05/26/2021. A hiatal h ernia is suggested. The patient is status post midline sternotomy. The heart is enlarged noting ather osclerotic calcification of the thoracic aorta. The pulmonary vasculature is noncongested. Scarring/a telectasis is again seen at both lung bases. There is increasing bibasilar airspace consolidation, ri ght greater than left. No large pleural effusion or pneumothorax is seen. The skeletal structures shefali ear osteopenic. The bony thorax is grossly intact. Degenerative change and scoliosis is noted in the thoracic spine. Arthritic change is seen in the shoulders. Superior subluxation of the humeral heads suggest chronic rotator cuff injuries. IMPRESSION: 1. Cardiomegaly without radiographic evidence of congestive failure. 2. There is increasing bibasilar airspace consolidation typical for an infectious/inflammatory pneumo nitis. Clinical correlation will be required and radiographic follow-up to resolution is recommended. ACT 112: Negative or not required by law. Electronically signed by: Milan Padron M.D. 05/27/2021 9:20 AM
[2021-05-27] MEDS ORDERED: ALBUT/IPRATROP 3MG/0.5MG NEB 3 ML VIAL NEB PRN (09:24)
[2021-05-27 09:25] LABS: CoV2 Total Antibody Positive (Negative)
[2021-05-27] MEDS: LACTATED RINGER'S 1,000 ML IV SCH ×2 (09:30→20:47)
[2021-05-27 09:47] LABS: Appearance Urine Cloudy (Clear); Bacteria Urine Automated Negative (Negative); Bilirubin Urine Negative (Negative); Blood Urine 3+ (Negative); Color Urine Red; Glucose Urine UA Negative (Negative); Ketones Urine Negative (Negative); Leukocyte Esterase Urine 2+ (Negative); Nitrite Urine Negative (Negative); Protein Urine 1+ (Negative); Specific Gravity Urine 1.008 (1.000-1.030); Urobilinogen Urine Negative (Negative); pH Urine 5.5 (4.5-7.5)
[2021-05-27] MEDS ORDERED: CETIRIZINE HCL 10 MG TABLET PO ONE (09:50)
[2021-05-27] MEDS ORDERED: FAMOTIDINE 20MG IV PUSH 20 MG/5 ML SYR IV ONE (10:00)
[2021-05-27 10:09] LABS: Epithelial Cell Urine Auto 0-5 /lpf (0-5); Mucus Urine Present (None Prsent); RBC Urine Automated >30 /hpf (0-4)
[2021-05-27] MEDS: FLUTICASONE PROPIONATE NA SPR 16 GM BTL SCH (10:31)
[2021-05-27] MEDS: POLYETHYLENE (MIRALAX) 17 GM PACK PO SCH (10:32)
[2021-05-27 10:36] LABS: Influenza A virus by PCR Negative (Negative); Influenza B virus by PCR Negative (Negative)
[2021-05-27 11:56] LABS: Magnesium 1.7 mg/dl (1.8-2.4)
[2021-05-27] MEDS ORDERED: MAGNESIUM SULFATE / D5W 1 GM/100 ML BAG IV ONE (12:42)
[2021-05-27] MEDS ORDERED: LACTATED RINGER'S 500 ML IV ONE (15:00)
[2021-05-27] MEDS: TAMSULOSIN HCL 0.4 MG CAP PO SCH (20:47)
[2021-05-28] MEDS ORDERED: MoRPHine SULFATE 4 MG/ML 1 ML CARP\\VIAL ONE (01:02)
[2021-05-28] MEDS: PIPERACILLIN/TAZOBACTAM 3.375 GM in DEXTROSE 5% 100 ML IV SCH ×3 (01:06→16:00)
[2021-05-28 07:14] LABS: Hematocrit (blood only) 35.5 % (42-52); Hemoglobin 11.8 g/dL (14.0-18.0); Mean Corpuscular Hemoglobin 31.3 pg (25-34); Mean Corpuscular Hgb Conc 33.2 g/dL (32-36); Mean Corpuscular Volume 94.2 fL (80-100); Mean Platelet Volume 11.3 fL (7.4-10.4); Platelet Count 101 K/uL (130-400); RDW Coefficient of Variation 13.7 % (11.5-14.5); RDW Standard Deviation 47.5 fL (36.4-46.3); Red Blood Count 3.77 M/uL (4.7-6.1); White Blood Count 4.84 K/uL (4.8-10.8)
[2021-05-28 07:15] LABS: Eosinophils # (auto) 0.18 K/uL (0-0.5); Eosinophils % (auto) 3.7 %; Immature Granulocytes # (auto) 0.01 K/uL (0.00-0.02); Immature Granulocytes % (auto) 0.2 %; Lymphocytes # (auto) 0.38 K/uL (1.2-3.4); Lymphocytes % (auto) 7.9 %; Monocytes % (auto) 4.1 %; Neutrophils # (auto) 4.07 K/uL (1.4-6.5); Neutrophils % (auto) 84.1 %; Platelet Estimate Decreased (Normal); RBC Morphology Unremarkable
[2021-05-28 08:00] LABS: Est GFR (African American) 98.7 ml/min; Potassium 3.8 mmol/L (3.5-5.1)
[2021-05-28 08:01] LABS: Albumin Globulin Ratio 0.8 (0.9-2); Albumin Level 2.3 gm/dl (3.4-5.0); BUN Creatinine Ratio 14.5 (10-20); Bilirubin,Total 0.7 mg/dl (0.2-1); Calcium 7.8 mg/dl (8.5-10.1); Est GFR (Non-African American) 85.2 ml/min; Magnesium 2.1 mg/dl (1.8-2.4); Total Protein 5.3 gm/dl (6.4-8.2)
--- NOTE | 2021-05-28 08:13 | Hospitalist Progress Note ---
Date of Service May 28, 2021 Assessment & Plan (1) Sepsis: Plan: fever, tachycardia, leukocytosis, elevated lactic acid, likely from urinary source however others not yet ruled out POD#2 s/p TURP and cystolitholapaxy with Dr Cintron on 05/26 developed fever to Tmax 38.7C on 05/26 at 17:30 Blood cultures obtained Switched from ancef to Zosyn for abx Urine culture obtained after however does appear to be source of infection Of note, repeat CXR 05/27 now with increasing bibasilar airspace consolidation typical for an infectious/inflammatory pneumonitis. F/u recommended to resolution --> Duonebs prn, incentive spirometer, flutter valve. Not producing sputum but does have hx seasonal allergies and on Flonase at home (resumed) and to be taking Zyrtec (which has been ordered for nasal congestion and rec to continue at d/c given he stated much improvement) --> He did have Covid 19 approx 1 year ago, vaccinated x 2 six months ago. Antibody testing accidental ordered instead of repeat COVID and likely positive due to immune status, however repeating PCR and remaining in isolation until resulted. Flu negative. COVID NEGATIVE Lactic added --> 2.4. Provided additional 500cc bolus . repeat resolved. CRP/ESR elevated Procal 0.43 Ancef was switched to Zosyn (would cover for abd/pulm/urinary) Tylenol prn fever 05/28 --> Patient much improved on Zosyn, on room air and WBC normalized. No further fevers and patient reports feeling much better and ready for d/c Blood cultures NGTD thus far, Urine cx negative on pre-liminary however had been on ancef and the zosyn prior to culture and suspect this as initial source however covering with Augmentin for total tx 10 days at d/c as discussed with Urology and rx sent on d/c paperwork Given hematuria would rec continuing to hold ASA for another 24-48 hours until resolved CXR with continued opacities and rales on R lung on exam, however on room air SpO2 92% Chest 2 view obtained --> Compared to the earlier examination, there is evidence for right lower lobe atelectasis and small right pleural effusion. No confluent alveolar opacities are seen. No right middle lobe pathology is identified. Resolution of left basilar atelectasis. --> covering with Augmentin at d/c x 10 days for urinary as well Overnight pulse ox with drop and arranged for O2 2L at d/c and rec for sleep study 2step prior to d/c to ensure stable on room air If not further fevers throughout today, stable for d/c from medical standpoint --> Of note, bcx not at 48 hours however given significant improvement feel safe for d/c (2) Fever: Plan: Fever to Tmax 38.7C at 17:30 on 05/26 Blood cultures drawn -- NGTD Ancef--> Zosyn as above Tylenol prn Urine cx neg on pre-grijalva --> abx given prior to cx but suspect urinary source given procedure and UA obtained CXR as above -- covering pulm but suspect was atelectasis. continue incentive spirometer at d/c WBC now wnl --> continue augmentin as above No further fevers today (3) Hypoxia: Plan: Now on room air -- see above covering with augmentin but suspect urinary as source noctural pulse ox with drop and arranged outpt O2 and rec for sleep study per PCP obtaining 2 step prior to d/c for safety (4) S/P CABG (coronary artery bypass graft): Plan: S/P inferolateral infarct with subsequent multivessel CABG including NEWBY 2006. Has been intolerant to beta-blockers, BRIAN inhibitor remains a reasonable alternative" per cardio 02/2021 office note (follows with Dr. Sharpe) ASA held pre-op -- to be resumed post-operatively if bleeding controlled at discretion of Urology Lisinopril to be resumed at d/c Trop negative, EKG unchanged (5) BPH loc w urin obs/LUTS: Plan: s/p TURP as above. management per primary service Continue flomax (6) Lesion of bladder: Plan: as above (7) CAD (coronary artery disease): Plan: follows with Dr Sharpe locally. ASA held, Intolerate to BB. On max statin. Lisinopril on hold for EKATERINA with Cr 1.34 from baseline <1, since resolved and can resume lisinopril in AM Trop negative, EKg unchanged (8) HTN (hypertension): Plan: BP improved Lisinopril to resume tomorrow (9) Dyslipidemia: Plan: continue Lipitor 80mg Plan: 2step prior to d/c augmentin x 10 days at d/c f/u urology and will need bcx followed up to ensure negative rec holding ASA until at least tomorrow or per urology when urine in llanes cleared up Admission and Anticipated Discharge Date Admission Date: May 26, 2021 Subjective patient evaluated around lunch doing well eating/drinking/passing gas but no BM. Llanes still with blood tinged urine and holding ASA for now -- resuming per Urology in next 24-48 hours depending on bleeding. no further fevers and WBC now wnl Possible dc this evening if continues to be afebrile and feeling well. Review of Systems Review of Systems: All systems reviewed & are unremarkable except as noted in HPI & below Physical Exam Physical Exam: WD, WN male sitting in ASU up in bed, no acute distress, sleeping upon arrival ENT: mmm, trachea midline without deviation, eyes anicteric, no lymphadenopathy appreciated Resp: clear to auscultation with exception diminished in the bases with associated rales RML/RLL, no wheezing, on room air CV: RRR, no r/g/m, no calf edema GI: +BS throughout, slightly hypoactive, soft, non-tender, no guarding or rigidity : llanes in place draining blood tinged urine, no clots MSK/Neuro: moves all extremities, no focal deficits, no slurred speech, answering questions appropriately Psych: AOx3, euthymic Results & Data Results & Data ([facility]) Vital Signs (Past 12 Hours) Vital Signs Temp Pulse Pulse Resp BP Pulse Ox Pulse Ox 05/27/21 20:57 73 95 05/27/21 20:49 37 C 74 14 125/72 95 Laboratory Results 05/28/21 05/28/21 05/27/21 Range/Units 05:40 05:40 15:35 WBC 4.84 D (4.8-10.8) K/uL RBC 3.77 L (4.7-6.1) M/uL Hgb 11.8 L (14.0-18.0) g/dL Hct 35.5 L (42-52) % MCV 94.2 (80-100) fL MCH 31.3 (25-34) pg MCHC 33.2 (32-36) g/dL RDW Std Deviation 47.5 H (36.4-46.3) fL RDW Coeff of Sheila 13.7 (11.5-14.5) % Plt Count 101 L (130-400) K/uL MPV 11.3 H (7.4-10.4) fL Immature Gran % (Auto) 0.2 % Neut % (Auto) 84.1 % Lymph % (Auto) 7.9 % Lyman % (Auto) 4.1 % Eos % (Auto) 3.7 % Baso % (Auto) 0.0 % Neut # (Auto) 4.07 (1.4-6.5) K/uL Lymph # (Auto) 0.38 L (1.2-3.4) K/uL Lyman # (Auto) 0.20 (0.11-0.59) K/uL Eos # (Auto) 0.18 (0-0.5) K/uL Baso # (Auto) 0.00 (0-0.2) K/uL Immature Gran # (Auto) 0.01 (0.00-0.02) K/uL Platelet Estimate Decreased L (Normal) RBC Morphology Unremarkable Sodium 137 (136-145) mmol/L Potassium 3.8 (3.5-5.1) mmol/L Chloride 107 (98-107) mmol/L Carbon Dioxide 25 (21-32) mmol/L Anion Gap 5.0 (3-11) BUN 13 (7-18) mg/dl Creatinine 0.92 D (0.6-1.4) mg/dl Est Cr Clr Drug Dosing 76.0 ml/min Est GFR ( Amer) 98.7 ml/min Est GFR (Non-Af Amer) 85.2 ml/min BUN/Creatinine Ratio 14.5 (10-20) Glucose 113 H (70-99) mg/dl Lactate 1.9 (0.4-2.0) mmol/L Calcium 7.8 L (8.5-10.1) mg/dl Magnesium 2.1 (1.8-2.4) mg/dl Total Bilirubin 0.7 (0.2-1) mg/dl AST 24 (15-37) U/L ALT 25 (12-78) U/L Alkaline Phosphatase 76 (45-117) U/L Troponin I (0-0.045) ng/ml C-Reactive Protein (0-0.29) mg/dl Total Protein 5.3 L D (6.4-8.2) gm/dl Albumin 2.3 L (3.4-5.0) gm/dl Globulin 3.0 (2.5-4.0) gm/dl Albumin/Globulin Ratio 0.8 L (0.9-2) Procalcitonin (0-0.5) ng/ml Urine Color Urine Appearance (Clear) Urine pH (4.5-7.5) Ur Specific Huron (1.000-1.030) Urine Protein (Negative) Urine Glucose (UA) (Negative) Urine Ketones (Negative) Urine Blood (Negative) Urine Nitrite (Negative) Urine Bilirubin (Negative) Urine Urobilinogen (Negative) Ur Leukocyte Esterase (Negative) Urine WBC (Auto) (0-5) /hpf Urine RBC (Auto) (0-4) /hpf U Hyaline Cast (Auto) (0-5) /lpf U Epithel Cells (Auto) (0-5) /lpf Urine Bacteria (Auto) (Negative) Urine Mucus (None Prsent) Urine Yeast Influ A Molecular Assay (Negative) Influ B Molecular Assay (Negative) SARS-CoV-2 RNA (CORIN) (Negative) SARS-CoV-2 IgG & IgM Ab (Negative) 05/27/21 05/27/21 05/27/21 Range/Units 13:50 13:50 12:20 WBC (4.8-10.8) K/uL RBC (4.7-6.1) M/uL Hgb (14.0-18.0) g/dL Hct (42-52) % MCV (80-100) fL MCH (25-34) pg MCHC (32-36) g/dL RDW Std Deviation (36.4-46.3) fL RDW Coeff of Sheila (11.5-14.5) % Plt Count (130-400) K/uL MPV (7.4-10.4) fL Immature Gran % (Auto) % Neut % (Auto) % Lymph % (Auto) % Lyman % (Auto) % Eos % (Auto) % Baso % (Auto) % Neut # (Auto) (1.4-6.5) K/uL Lymph # (Auto) (1.2-3.4) K/uL Lyman # (Auto) (0.11-0.59) K/uL Eos # (Auto) (0-0.5) K/uL Baso # (Auto) (0-0.2) K/uL Immature Gran # (Auto) (0.00-0.02) K/uL Platelet Estimate (Normal) RBC Morphology Sodium (136-145) mmol/L Potassium (3.5-5.1) mmol/L Chloride (98-107) mmol/L Carbon Dioxide (21-32) mmol/L Anion Gap (3-11) BUN (7-18) mg/dl Creatinine (0.6-1.4) mg/dl Est Cr Clr Drug Dosing ml/min Est GFR ( Amer) ml/min Est GFR (Non-Af Amer) ml/min BUN/Creatinine Ratio (10-20) Glucose (70-99) mg/dl Lactate 2.4 H* (0.4-2.0) mmol/L Calcium (8.5-10.1) mg/dl Magnesium (1.8-2.4) mg/dl Total Bilirubin (0.2-1) mg/dl AST (15-37) U/L ALT (12-78) U/L Alkaline Phosphatase (45-117) U/L Troponin I (0-0.045) ng/ml C-Reactive Protein (0-0.29) mg/dl Total Protein (6.4-8.2) gm/dl Albumin (3.4-5.0) gm/dl Globulin (2.5-4.0) gm/dl Albumin/Globulin Ratio (0.9-2) Procalcitonin 0.43 (0-0.5) ng/ml Urine Color Urine Appearance (Clear) Urine pH (4.5-7.5) Ur Specific Huron (1.000-1.030) Urine Protein (Negative) Urine Glucose (UA) (Negative) Urine Ketones (Negative) Urine Blood (Negative) Urine Nitrite (Negative) Urine Bilirubin (Negative) Urine Urobilinogen (Negative) Ur Leukocyte Esterase (Negative) Urine WBC (Auto) (0-5) /hpf Urine RBC (Auto) (0-4) /hpf U Hyaline Cast (Auto) (0-5) /lpf U Epithel Cells (Auto) (0-5) /lpf Urine Bacteria (Auto) (Negative) Urine Mucus (None Prsent) Urine Yeast Influ A Molecular Assay (Negative) Influ B Molecular Assay (Negative) SARS-CoV-2 RNA (CORIN) Negative (Negative) SARS-CoV-2 IgG & IgM Ab (Negative) 05/27/21 05/27/21 05/27/21 Range/Units 09:10 09:10 08:36 WBC (4.8-10.8) K/uL RBC (4.7-6.1) M/uL Hgb (14.0-18.0) g/dL Hct (42-52) % MCV (80-100) fL MCH (25-34) pg MCHC (32-36) g/dL RDW Std Deviation (36.4-46.3) fL RDW Coeff of Sheila (11.5-14.5) % Plt Count (130-400) K/uL MPV (7.4-10.4) fL Immature Gran % (Auto) % Neut % (Auto) % Lymph % (Auto) % Lyman % (Auto) % Eos % (Auto) % Baso % (Auto) % Neut # (Auto) (1.4-6.5) K/uL Lymph # (Auto) (1.2-3.4) K/uL Lyman # (Auto) (0.11-0.59) K/uL Eos # (Auto) (0-0.5) K/uL Baso # (Auto) (0-0.2) K/uL Immature Gran # (Auto) (0.00-0.02) K/uL Platelet Estimate (Normal) RBC Morphology Sodium (136-145) mmol/L Potassium (3.5-5.1) mmol/L Chloride (98-107) mmol/L Carbon Dioxide (21-32) mmol/L Anion Gap (3-11) BUN (7-18) mg/dl Creatinine (0.6-1.4) mg/dl Est Cr Clr Drug Dosing ml/min Est GFR ( Amer) ml/min Est GFR (Non-Af Amer) ml/min BUN/Creatinine Ratio (10-20) Glucose (70-99) mg/dl Lactate (0.4-2.0) mmol/L Calcium (8.5-10.1) mg/dl Magnesium (1.8-2.4) mg/dl Total Bilirubin (0.2-1) mg/dl AST (15-37) U/L ALT (12-78) U/L Alkaline Phosphatase (45-117) U/L Troponin I (0-0.045) ng/ml C-Reactive Protein (0-0.29) mg/dl Total Protein (6.4-8.2) gm/dl Albumin (3.4-5.0) gm/dl Globulin (2.5-4.0) gm/dl Albumin/Globulin Ratio (0.9-2) Procalcitonin (0-0.5) ng/ml Urine Color Red Urine Appearance Cloudy A (Clear) Urine pH 5.5 (4.5-7.5) Ur Specific Huron 1.008 (1.000-1.030) Urine Protein 1+ H (Negative) Urine Glucose (UA) Negative (Negative) Urine Ketones Negative (Negative) Urine Blood 3+ H (Negative) Urine Nitrite Negative (Negative) Urine Bilirubin Negative (Negative) Urine Urobilinogen Negative (Negative) Ur Leukocyte Esterase 2+ H (Negative) Urine WBC (Auto) 10-30 H (0-5) /hpf Urine RBC (Auto) >30 H (0-4) /hpf U Hyaline Cast (Auto) 1-5 (0-5) /lpf U Epithel Cells (Auto) 0-5 (0-5) /lpf Urine Bacteria (Auto) Negative (Negative) Urine Mucus Present A (None Prsent) Urine Yeast Not Reportable Influ A Molecular Assay Negative (Negative) Influ B Molecular Assay Negative (Negative) SARS-CoV-2 RNA (CORIN) (Negative) SARS-CoV-2 IgG & IgM Ab Positive A (Negative) 05/27/21 05/27/21 05/27/21 Range/Units 08:07 08:07 08:07 WBC 11.26 H (4.8-10.8) K/uL RBC 3.83 L (4.7-6.1) M/uL Hgb 12.1 L (14.0-18.0) g/dL Hct 36.3 L (42-52) % MCV 94.8 (80-100) fL MCH 31.6 (25-34) pg MCHC 33.3 (32-36) g/dL RDW Std Deviation 48.5 H (36.4-46.3) fL RDW Coeff of Sheila 14.0 (11.5-14.5) % Plt Count 118 L (130-400) K/uL MPV 11.3 H (7.4-10.4) fL Immature Gran % (Auto) 0.3 % Neut % (Auto) 93.7 % Lymph % (Auto) 2.3 % Lyman % (Auto) 2.8 % Eos % (Auto) 0.9 % Baso % (Auto) 0.0 % Neut # (Auto) 10.56 H (1.4-6.5) K/uL Lymph # (Auto) 0.26 L (1.2-3.4) K/uL Lyman # (Auto) 0.31 (0.11-0.59) K/uL Eos # (Auto) 0.10 (0-0.5) K/uL Baso # (Auto) 0.00 (0-0.2) K/uL Immature Gran # (Auto) 0.03 H (0.00-0.02) K/uL Platelet Estimate (Normal) RBC Morphology Sodium 137 (136-145) mmol/L Potassium 3.9 (3.5-5.1) mmol/L Chloride 107 (98-107) mmol/L Carbon Dioxide 19 L (21-32) mmol/L Anion Gap 11.0 (3-11) BUN 18 (7-18) mg/dl Creatinine 1.34 (0.6-1.4) mg/dl Est Cr Clr Drug Dosing 52.9 ml/min Est GFR ( Amer) 63.1 ml/min Est GFR (Non-Af Amer) 54.4 ml/min BUN/Creatinine Ratio 13.1 (10-20) Glucose 158 H (70-99) mg/dl Lactate (0.4-2.0) mmol/L Calcium 7.5 L (8.5-10.1) mg/dl Magnesium 1.7 L (1.8-2.4) mg/dl Total Bilirubin (0.2-1) mg/dl AST (15-37) U/L ALT (12-78) U/L Alkaline Phosphatase (45-117) U/L Troponin I < 0.015 (0-0.045) ng/ml C-Reactive Protein 11.00 H (0-0.29) mg/dl Total Protein (6.4-8.2) gm/dl Albumin (3.4-5.0) gm/dl Globulin (2.5-4.0) gm/dl Albumin/Globulin Ratio (0.9-2) Procalcitonin (0-0.5) ng/ml Urine Color Urine Appearance (Clear) Urine pH (4.5-7.5) Ur Specific Huron (1.000-1.030) Urine Protein (Negative) Urine Glucose (UA) (Negative) Urine Ketones (Negative) Urine Blood (Negative) Urine Nitrite (Negative) Urine Bilirubin (Negative) Urine Urobilinogen (Negative) Ur Leukocyte Esterase (Negative) Urine WBC (Auto) (0-5) /hpf Urine RBC (Auto) (0-4) /hpf U Hyaline Cast (Auto) (0-5) /lpf U Epithel Cells (Auto) (0-5) /lpf Urine Bacteria (Auto) (Negative) Urine Mucus (None Prsent) Urine Yeast Influ A Molecular Assay (Negative) Influ B Molecular Assay (Negative) SARS-CoV-2 RNA (CORIN) (Negative) SARS-CoV-2 IgG & IgM Ab (Negative) Diagnostic Findings Chest X-Ray 05/28/21 07:01 XR chest 1V portable HISTORY: Fever. Hypoxia. f/u consolidative process COMPARISON: Chest 05/27/2021. FINDINGS: Left apical density favors an overlapping skin fold. No pneumothorax. Trace left pleural effusion persists. The heart remains mildly enlarged. There are poststernotomy changes and a tortuous thoracic aorta. There are low lung volumes. Patchy bibasilar airspace opacities are again noted. The upper lung zones are clear. IMPRESSION: No change in the patchy bibasilar airspace opacities. This likely represents a pneumonia. ACT 112: Negative or not required by law. Electronically signed by: Michael Bloom M.D. 05/28/2021 9:33 AM Chest X-Ray 05/28/21 12:17 XR chest 2V PA/lateral at 1:34 PM CLINICAL HISTORY: RML rhonchi. COMPARISON STUDY: 05/28/2021 at 6:33 AM TECHNIQUE: 2 views of the chest FINDINGS: Frontal and lateral radiographs of the chest demonstrate the cardiomediastinal silhouette to be within normal limits. The patient is again status post cardiothoracic surgery. Hiatal hernia seen in the retrocardiac region. Compared to the earlier examination, there has been resolution of left basilar atelectasis. However, patchy linear alveolar opacities are seen within the right lower lobe most characteristic of atelectasis. No confluent alveolar opacities are seen. There is a small right pleural effusion. There is no evidence for left pleural effusion. There is no evidence for vascular congestion. There is no acute osseous pathology. IMPRESSION: Compared to the earlier examination, there is evidence for right lower lobe atelectasis and small right pleural effusion. No confluent alveolar opacities are seen. No right middle lobe pathology is identified. Resolution of left basilar atelectasis. ACT 112: Negative or not required by law. Electronically signed by: Arnaldo Bell M.D. 05/28/2021 2:47 PM PG Care Time/CCT Total # of Minutes Spent Total Time Spent with Patient: Total time spent is greater than 50% in coordination of care (as documented) at patient's floor/unit and/or counseling patient: Coding Level of Care Code 30518 Subseq Obs Care Lvl 3 Diagnoses Sepsis A41.9 Fever R50.9 Hypoxia R09.02 S/P CABG (coronary artery bypass graft) Z95.1 BPH loc w urin obs/LUTS N40.1 Lesion of bladder N32.9 CAD (coronary artery disease) I25.10 HTN (hypertension) I10 Dyslipidemia E78.5
--- NOTE | 2021-05-28 08:37 | Urology Progress Note ---
Date of Service May 28, 2021 Assessment & Plan (1) Bladder stones: (2) BPH loc w urin obs/LUTS: (3) Gross hematuria: Plan: Status post TURP and litholapaxy Febrile yesterday, concerned about Covid secondary to some chest findings and symptoms Fortunately his laboratory evaluation turned out to be negative He is now afebrile Final culture results pending although his blood cultures were negative Subjectively feeling well I believe he should be stable for discharge home todaywe will confirm the best antibiotic choice with the hospital team, I suspect his underlying pathology may have been not respiratory but they may desire double coverage Admission and Anticipated Discharge Date Admission Date: May 26, 2021 Subjective Seems to have turned the corner overnight Feeling well Denies any respiratory or abdominal discomfort Urine clear Covid test was negative yesterday Physical Exam Physical Exam: Clear urine, CBI clamped Results & Data ([facility]) Vital Signs (Past 12 Hours) Vital Signs Temp Pulse Pulse Resp BP Pulse Ox Pulse Ox 05/28/21 07:00 37 C 82 16 124/79 92 05/27/21 20:57 73 95 05/27/21 20:49 37 C 74 14 125/72 95 PG Care Time/CCT Total # of Minutes Spent Total Time Spent with Patient: Total time spent is greater than 50% in coordination of care (as documented) at patient's floor/unit and/or counseling patient: Coding Level of Care Code 91828 Subseq Hosp Care Lvl 2 Diagnoses Bladder stones N21.0 BPH loc w urin obs/LUTS N40.1 Gross hematuria R31.0
[2021-05-28] MEDS: CETIRIZINE HCL 10 MG TABLET PO SCH (09:18)
[2021-05-28] MEDS: ATORVASTATIN 40 MG TAB PO SCH (09:19)
[2021-05-28] MEDS: SENNA 8.6 MG TAB PO SCH (09:19)
[2021-05-28] MEDS: FLUTICASONE PROPIONATE NA SPR 16 GM BTL SCH (09:19)
[2021-05-28] MEDS: DOCUSATE SODIUM 100 MG CAP PO SCH ×2 (09:19→20:40)
[2021-05-28] MEDS: POLYETHYLENE (MIRALAX) 17 GM PACK PO SCH (09:19)
--- NOTE | 2021-05-28 09:34 | XRay Report ---
XR chest 1V portable HISTORY: Fever. Hypoxia. f/u consolidative process COMPARISON: Chest 05/27/2021. FINDINGS: Left apical density favors an overlapping skin fold. No pneumothorax. Trace left pleural ef fusion persists. The heart remains mildly enlarged. There are poststernotomy changes and a tortuous t horacic aorta. There are low lung volumes. Patchy bibasilar airspace opacities are again noted. The u pper lung zones are clear. IMPRESSION: No change in the patchy bibasilar airspace opacities. This likely represents a pneumonia. ACT 112: Negative or not required by law. Electronically signed by: Michael Bloom M.D. 05/28/2021 9:33 AM
--- NOTE | 2021-05-28 13:07 | Electrocardiogram Report ---
Test Reason : Blood Pressure : / mmHG Vent. Rate : 075 BPM Atrial Rate : 075 BPM P-R Int : 160 ms QRS Dur : 094 ms QT Int : 340 ms P-R-T Axes : 052 -19 090 degrees QTc Int : 379 ms Normal sinus rhythm Nonspecific T wave abnormality Abnormal ECG When compared with ECG of 22-JUN-2018 17:08, No significant change was found Confirmed by Jluis Warner ([id number]) on 05/28/2021 1:06:35 PM Referred By: Jose Cintron Confirmed By:Jeancarlos Warner
--- NOTE | 2021-05-28 14:49 | XRay Report ---
XR chest 2V PA/lateral at 1:34 PM CLINICAL HISTORY: RML rhonchi. COMPARISON STUDY: 05/28/2021 at 6:33 AM TECHNIQUE: 2 views of the chest FINDINGS: Frontal and lateral radiographs of the chest demonstrate the cardiomediastinal silhouette to be withi n normal limits. The patient is again status post cardiothoracic surgery. Hiatal hernia seen in the r etrocardiac region. Compared to the earlier examination, there has been resolution of left basilar atelectasis. However, patchy linear alveolar opacities are seen within the right lower lobe most characteristic of atelecta sis. No confluent alveolar opacities are seen. There is a small right pleural effusion. There is no e vidence for left pleural effusion. There is no evidence for vascular congestion. There is no acute os seous pathology. IMPRESSION: Compared to the earlier examination, there is evidence for right lower lobe atelectasis a nd small right pleural effusion. No confluent alveolar opacities are seen. No right middle lobe patho logy is identified. Resolution of left basilar atelectasis. ACT 112: Negative or not required by law. Electronically signed by: Arnaldo Bell M.D. 05/28/2021 2:47 PM
[2021-05-28] MEDS: ACETAMINOPHEN 500 MG TAB PO PRN (15:43)
[2021-05-28] MEDS: TAMSULOSIN HCL 0.4 MG CAP PO SCH (20:39)
[2021-05-28 23:10] LABS: Component 2 DNR; Source BLADDER STONE
[2021-05-29] MEDS: PIPERACILLIN/TAZOBACTAM 3.375 GM in DEXTROSE 5% 100 ML IV SCH ×2 (01:17→08:29)
[2021-05-29 06:14] LABS: Hematocrit (blood only) 36.1 % (42-52); Hemoglobin 11.9 g/dL (14.0-18.0); Platelet Count 105 K/uL (130-400); RDW Coefficient of Variation 13.5 % (11.5-14.5); RDW Standard Deviation 46.5 fL (36.4-46.3); Red Blood Count 3.84 M/uL (4.7-6.1); White Blood Count 5.45 K/uL (4.8-10.8)
[2021-05-29 06:53] LABS: BUN Creatinine Ratio 13.4 (10-20); Calcium 7.9 mg/dl (8.5-10.1); Creatinine Clr Calc Pharmacy 103.9 ml/min; Est GFR (African American) 108.7 ml/min; Est GFR (Non-African American) 93.7 ml/min; Potassium 3.8 mmol/L (3.5-5.1)
--- NOTE | 2021-05-29 08:04 | Urology Progress Note ---
Date of Service May 29, 2021 Assessment & Plan (1) Sepsis: (2) Fever: (3) BPH loc w urin obs/LUTS: (4) Bladder stones: Plan: 65yo M admitted s/p TURP who developed fever postoperatively - POD #3 s/p Transurethral Resection of the Prostate, Cystolitholapaxy with Dr. Cintron. - Postoperative course complicated by presumed sepsis given fever, tachycardia, leukocytosis, elevated lactic acid. - Hospital team consulted and followed patient during admission, appreciate recommendations. - Febrile postop day #1, initial concern about Covid/Flu secondary to some chest findings and symptoms. - Fortunately his laboratory evaluation turned out to be negative, now on room air. - Completed 2 step prior to d/c and will follow-up with PCP for recommended sleep study. - He is now afebrile. - Feeling well this morning, progressing as expected and eager to go home today. - Labs reviewed - Wbc and creatinine normal, hemoglobin stable. - Urine culture preliminary no growth; Blood cultures preliminary no growth x 48hrs. - Postoperative follow-up and voiding trial appointment in place. - Patient to complete x10 day course of Augmentin on discharge for possible respiratory/urinary source. - Discussed with patient to resume Aspirin tomorrow if urine remains approp riate. - Expected clinical course reviewed with patient, he verbalizes understanding. All questions answered. - Stable for discharge home today with Kerr catheter. Admission and Anticipated Discharge Date Admission Date: May 28, 2021 Subjective Pt examined at bedside this morning. Awake, sitting in bedside chair. Feeling well. No fevers overnight. Eager to go home. Tolerating PO diet. Denies any abdominal or flank pain. No CP or SOB. Kerr catheter intact/patent, draining clear urine Review of Systems Constitutional: as per Subjective / HPI Gastrointestinal: as per Subjective / HPI Genitourinary: + as per Subjective / HPI Physical Exam Constitutional: well developed and well nourished; no acute distress and not ill appearing Respiratory: normal respiratory effort and able to speak in complete sentences; no labored breathing and no audible wheezes Gastrointestinal (Abdomen): Inspection/Auscultation: abdomen normal to inspection; abdomen not distended Musculoskeletal: Head/Neck/Chest: normocephalic Skin: No visible rashes or lesions to exposed skin areas Neurologic: moves all extremities and awake Psychiatric: Orientation: alert, oriented x 3 and cooperative Genitourinary: Kerr catheter intact Results & Data ([facility]) Vital Signs (Past 12 Hours) Vital Signs Temp Pulse Resp BP Pulse Ox 05/29/21 06:30 37.2 C 73 19 122/80 93 PG Care Time/CCT Total # of Minutes Spent Total Time Spent with Patient: Total time spent is greater than 50% in coordination of care (as documented) at patient's floor/unit and/or counseling patient: Coding Level of Care Code 96849 Subseq Hosp Care Lvl 2 Diagnoses Sepsis A41.9 Fever R50.9 BPH loc w urin obs/LUTS N40.1 Bladder stones N21.0
[2021-05-29] MEDS: ATORVASTATIN 40 MG TAB PO SCH (08:42)
[2021-05-29] MEDS: CETIRIZINE HCL 10 MG TABLET PO SCH (08:43)
[2021-05-29] MEDS: FLUTICASONE PROPIONATE NA SPR 16 GM BTL SCH (08:43)
[2021-05-29] MEDS: POLYETHYLENE (MIRALAX) 17 GM PACK PO SCH (08:43)
[2021-05-29] MEDS: SENNA 8.6 MG TAB PO SCH (08:43)
[2021-05-29] MEDS: DOCUSATE SODIUM 100 MG CAP PO SCH (08:43)
--- NOTE | 2021-05-29 15:46 | Discharge Summary ---
Date of Service May 29, 2021 Admission HPI Per Admitting Provider Patient here for procedure. No changes in medical issues. No major changes in urinary issues. Continued issues and concerns. No change in pain or discomfort. No severe fevers or chills. No chest pain or shortness of breath. Risks and benefits discussed at length for procedure. These include bleeding, infection, injury to surrounding tissues or organs, and risks associated with anesthesia. Patient and/or family states understanding and agrees to proceed. Consent and supporting information completed. Admission Exam Per Admitting Provider General: Alert/Arousable. No Acute illness. . HEENT: Inspection normal. Normal inspection of face. Normal inspection of neck. Psychologic: Normal affect/No change in mentation. Respiratory: No use of accessory muscles. No respiratory changes or exacerbation or changes with tachypnea or dyspnea. Cardiovascular: No tachycardia Skin: [place] and Dry. No new rashes or visible lesions. Abdomen: Normal inspection. No guarding. Principal Diagnosis BPH; Bladder stones Discharge Exam Constitutional: well developed and well nourished; no acute distress and not ill appearing Respiratory: normal respiratory effort and able to speak in complete sentences; no labored breathing and no audible wheezes Gastrointestinal (Abdomen): Inspection/Auscultation: abdomen normal to insp ection; abdomen not distended Musculoskeletal: Head/Neck/Chest: normocephalic Skin: No visible rashes or lesions to exposed skin areas Neurologic: moves all extremities and awake Psychiatric: Orientation: alert, oriented x 3 and cooperative Genitourinary: Kerr catheter intact Discharge Data Allergies Allergy/AdvReac Type Severity Reaction Status Date / Time No Known Allergies Allergy Verified 05/26/21 06:45 Consultations 05/26/21 17:56 Consult Hospitalist Routine Procedures Performed Operation Date: 04/21/21 10:30 <No data on this case meets the specified criteria> Operation Date: 05/26/21 08:00 Actual Procedures p Transurethral Resection of the Prostate, (Not Applicable) - Jose Cintron DO s Cystolithopaxy(Not Applicable) - Jose Cintron DO Hospital Course (1) BPH loc w urin obs/LUTS: (2) Bladder stones: (3) Sepsis: (4) Fever: 65yo M admitted s/p TURP who developed fever postoperatively - POD #3 s/p Transurethral Resection of the Prostate, Cystolitholapaxy with Dr. Cintron. - Postoperative course complicated by presumed sepsis given fever, tachycardia, leukocytosis, elevated lactic acid. - Hospital team consulted and followed patient during admission, appreciate recommendations. - Febrile postop day #1, initial concern about Covid/Flu secondary to some chest findings and symptoms. - Fortunately his laboratory evaluation turned out to be negative, now on room air. - Completed 2 step prior to d/c and will follow-up with PCP for recommended sleep study. - He is now afebrile. - Feeling well this morning, progressing as expected and eager to go home today. - Labs reviewed - Wbc and creatinine normal, hemoglobin stable. - Urine culture preliminary no growth; Blood cultures preliminary no growth x 48hrs. - Postoperative follow-up and voiding trial appointment in place. - Patient to complete x10 day course of Augmentin on discharge for possible respiratory/urinary source. - Discussed with patient to resume Aspirin tomorrow if urine remains appropriate. - Expected clinical course reviewed with patient, he verbalizes understanding. All questions answered. - Stable for discharge home today with Kerr catheter. Total Time Total Time Spent Total Time Spent (In Minutes): 25 Discharge Plan Discharge Items Patient Disposition: Home - Self-Care Reason For Visit: Benign Prostate Hyperplasia, Bladder Stones Discharge Diagnosis: Benign Prostate Hyperplasia, Bladder Stones Activity: Per Instructions section Lifting: No more than 25 pounds Bathing Comment: OK to shower. No tub baths or soaks. Sexual Activity: Wait until after follow-up appointment Exercise/Sports: Wait until after follow-up appointment Driving/Machine Use: Do not drive while taking prescription pain medication. Non-emergency contact: Surgeon and Urologist Call non-emergency contact if: you have any medication questions, your pain is not controlled, you have a fever and your temperature is above 101 Follow-up/Referrals: Jose Cintron DO [Physician] - 06/10/21 9:10 am Marc Dillard DO [Primary Care Provider] - [facility],Nurse [FAKE FOR SCHEDULES] - 06/10/21 10:00 am Diet: Regular Addtl Attending Provider Instructions: Please take all medications as prescribed and keep all follow-ups as scheduled. Please call our office at [phone] with any questions, concerns or need to reschedule appointments for any reason. We are happy to assist you. Please complete your antibiotics as prescribed. You can resume your aspirin tomorrow given your urine remains clear to light pink. Tips for your recovery at home: Dont be alarmed by brownish or reddish blood or clots in your urine. This is a result of the procedure. This may occur off and on for weeks to months after the procedure but should continue to improve. Drink plenty of fluids during the day (enough to keep your urine very light colored). This will help keep a healthy flow of urine. Do not lift >25 lbs until your followup Avoid constipation. Please use a stool softener (Colace) for the first two weeks after your procedure Be sure to finish the antibiotics as prescribed. If you go home with a catheter, please wash tubing where it enters your body twice daily with mild soap (Dove or Dial). Once your catheter is removed, expect some blood in your urine and some burning when you urinate. You should have an appointment to have this removed, if you do not please call our office to arrange. When to call [facility] at [phone]: Your urine contains heavy blood clots You are constantly leaking urine Fever of 101F or higher, chills, nausea, or vomiting Your pain is not relieved with medication Addtl Lead Former Provider Instructions: You have been on IV antibiotics for possible urinary tract infection (as well as pulmonary infection, given possible start of pneumonia on imaging and flu and COVID testing were negative). Unfortunately, antibiotics were already given prior to the urine being collected, and preliminary does not show any growth. You have been on Zosyn IV for antibiotics while in the hospital and are being sent with a prescription for Augmentin to take 1 tablet by mouth twice daily to complete a 10 day course. You had an overnight oxygen test and did drop your saturations. You have been set up with oxygen to wear 2 liters at night and should have outpatient formal sleep study. This may be falsely affected by a possible pneumonia, and you should follow up with your PCP for repeat testing as outlined. Please return to the emergency department with any increased fever, chills, chest pain, shortness of breath or other symptoms concerning for you. Pending Studies at Discharge: Yes (Pathology) Stand-Alone Forms: My [employer], Smoking Cessation Medications and DC Order Prescriptions: New amoxicillin-pot clavulanate [Augmentin] 875-125 mg tablet 1 tab PO BID 9 Days Qty: 18 RF: 0 oxycodone-acetaminophen [Percocet] 5-325 mg tablet 1 tab PO Q8H PRN (Reason: pain) Qty: 7 RF: 0 docusate sodium [Colace] 100 mg capsule 100 mg PO BID Qty: 30 RF: 0 Continued aspirin 81 mg tablet 81 mg PO QAM RF: 0 nitroglycerin [Nitrostat] 0.4 mg tablet, sublingual 0.4 mg Sublingual DIRECTED PRN (Reason: Chest Pain) Qty: 25 RF: 3 atorvastatin 80 mg Tablet 80 mg PO QAM RF: 0 lisinopril [Zestril] 2.5 mg Tablet 2.5 mg PO QAM RF: 0 tamsulosin [Flomax] 0.4 mg capsule 0.4 mg PO QPM RF: 0 finasteride 5 mg tablet 5 mg PO QAM RF: 0 Discharge Orders: Discharge Order (Routine); Ordered 05/29/21 Ordered By: Leslie Fernandez/Other Patient Handouts: Emptying and Cleaning Your ..., Discharge Instructions Caring for ... Admission Data Admit Date/Time: 05/28/21 16:47 Attending Provider: Jose Cintron Admit Provider: Jose Cintron Primary Care Provider: Marc Dillard Other Providers: Leslie Prado ; Ricky Servin ; Tye Flores ; Aiden Barnard ; Familia Hamlin ; Milan Franks ; Ngoc Philip ; Galina Saucedo ; Sriram Rubio ; Trish [place] ; Aishwarya Gregory ; Sachin Todd ; Andrea Cooper ; Jose Ramon Shannon ; Leslie Duffy ; Kip Calderon ; Viktor [place] ; Catrachito Faye ; Ricky Mojica ; Ari Quinonez ; Radha Marino ; Tatiana Cameron ; Bryan Hector ; Trish Gardner ; Zay Parker ; Martín Cummings ; Carlos Gutierrez ; Wilfrido Dey Other Interventions: Discharge Summary Assessment (RN) Last Done: 05/29/21 09:55 Coding Level of Care Code D/C DAY MANAGEMENT <30 MINS Diagnoses BPH loc w urin obs/LUTS N40.1 Bladder stones N21.0 Sepsis A41.9 Fever R50.9
--- NOTE | 2021-06-09 09:48 | Coding Query ---
CODING QUERY To promote full compliance with coding requirements relating to patient care, provider participation is requested in all cases of office runner uncertainty. Please assist us with the question(s) below: Coding Question(s): 1. Please specify below, in your clinical opinion, regarding Sepsis with documentation of , "Postoperative course complicated by presumed sepsis given fever, tachycardia, leukocytosis, elevated lactic acid.". ( X ) Sepsis is likely a Postoperative Complication ( ) Sepsis is Not likely a Postoperative Complication ( X ) Other: Please Specify: Based on xray/imaging, hypoxia, and symptoms as above, likely Pneumonia post Procedure. 2. Patient was observation on 05/26/21, and was admitted as Inpatient on 05/28/21. There is documentation of, "65yo M admitted s/p TURP who developed fever postoperatively". Please specify below, the diagnosis most responsible for the Inpatient admission. ( X ) Sepsis was most responsible for occasioning the Inpatient admission ( ) BPH loc w urin obs/LUTS was most responsible for occasioning the Inpatient admission ( ) Bladder Stones was most responsible for occasioning the Inpatient admission ( X ) Other: Please Specify: Admitted post op from TURP with cystolithalopaxy. Dx: Bladder stones secondary to BPH with urinary obstruction. Physician's Response(s): Patient was admitted for observation as is typical for large transurethral resection especially when stone treatment is also necessary. Developed fever and subsequently hypoxia and tachycardia. Was changed to inpatient status due to continued hypoxia. Sepsis likely secondary to Pneumonia post op. Treated with supportive care, O2, and broad spectrum abx. Did not develop shock or hypotension. By 05/28 the main issue was the Pneumonia with hypoxia. That warranted further treatment and required the change to inpatient. Thank you Gay Cedeño Principal Diagnosis: "that condition established after study, to be chiefly responsible for occasioning the admission of the patient to the hospital for care." Co-Existing Principal Diagnosis: "when two or more diagnoses equally meet the criteria for principal diagnosis as determined by the circumstances of admission, diagnostic work up, and/or therapy provided, and the Alphabetic Index, Tabular List, or another coding guideline does not provide sequencing direction, any one of the diagnoses may be sequenced first." "When the physician has documented what appears to be a current diagnosis in the body of the record, but has not included the diagnosis in the final diagnostic statement, the physician should be asked whether the diagnosis should be added." (Source Coding Clinic 2 QTR90. p3-4) [email or web address]
== END 2021-05-29 10:13 | disposition home or self-care (01) | DRG 856 ==
LOC: PACUINP 06:14 → ASU 06:14 → ASUINP 05-28 06:49